=== PATIENT | male | born 1980 | race Two or more races ===

== ENCOUNTER 2020-04-19 11:50 | Emergency (ER) | payer MEDICAID ==
[~2020-04-19] VITALS: Ht 167.6 cm; Wt 65.8 kg
[2020-04-19 12:13] VITALS: BP 158/98
[2020-04-19] MEDS ORDERED: FLUORESCEIN SOD 1 MG TEST STRIP OP ONE (12:30)
[2020-04-19] MEDS ORDERED: TETRACAINE HCL 0.5% OPTH(EYE) SOLN 4ML LEFTEYE ONE (12:30)
== END 2020-04-19 12:45 | disposition home or self-care (01) ==
LOC: ER 11:50
DX: S05.02XA Injury of conjunctiva and corneal abrasion without foreign body, left eye, initial encounter (principal); H11.32 Conjunctival hemorrhage, left eye; F17.210 Nicotine dependence, cigarettes, uncomplicated; Z59.0 Homelessness; X58.XXXA Exposure to other specified factors, initial encounter; Y93.89 Activity, other specified; Y92.89 Other specified places as the place of occurrence of the external cause; Y99.8 Other external cause status

== ENCOUNTER 2021-08-31 00:57 | Emergency (ER) | payer MEDICAID ==
[~2021-08-31] VITALS: Ht 167.6 cm; Wt 70.3 kg
[2021-08-31 01:00] VITALS: BP 135/97
== END 2021-08-31 04:36 | disposition left against medical advice (07) ==
LOC: ER 00:58
DX: R07.81 Pleurodynia (principal); Z53.21 Procedure and treatment not carried out due to patient leaving prior to being seen by health care provider; Y09 Assault by unspecified means; Y93.89 Activity, other specified; Y92.89 Other specified places as the place of occurrence of the external cause; Y99.8 Other external cause status
CPT/HCPCS: 71101

== ENCOUNTER 2021-11-15 21:49 | Emergency (ER) | payer MEDICAID ==
[~2021-11-15] VITALS: Ht 170.2 cm; Wt 68.0 kg
[2021-11-15 22:10] VITALS: BP 159/102
[2021-11-15 23:38] LABS: Basophils # (auto) 0 10 ^3/uL (0-0.2); Basophils % (auto) 0.2 % (0.0-2.0); Eosinophils # (auto) 0.1 10 ^3/uL (0-0.8); Eosinophils % (auto) 0.7 % (0.0-7.0); Hematocrit 45.2 % (41.0-53.0); Hemoglobin 15.5 g/dL (13.5-17.5); Lymphocytes # (auto) 1.1 10 ^3/uL (0.4-5.4); Lymphocytes % (auto) 10.5 % (10.0-50.0); Mean Corpuscular Hemoglobin 29.5 pg (28.0-32.0); Mean Corpuscular Hgb Conc. 34.2 g/dL (32.0-36.0); Mean Corpuscular Volume 86.3 fL (80.0-100.0); Monocytes # (auto) 0.6 10 ^3/uL (0-1.3); Monocytes % (auto) 5.3 % (0.0-12.0); Neutrophils # (auto) 8.7 10 ^3/uL (1.6-8.6); Neutrophils % (auto) 83.3 % (37.0-80.0); Red Blood Cells 5.24 10^6/uL (4.5-5.90); Red Cell Distribution Width 14.1 % (11.8-14.3); White Blood Cell 10.5 10^3/uL (4.4-10.8)
[2021-11-15 23:59] LABS: Albumin 3.4 g/dL (3.4-5.0); Calcium 9.3 mg/dL (8.5-10.1); Potassium 3.7 mmol/L (3.5-5.1)
[2021-11-16 00:01] LABS: BUN/Creatinine Ratio 25.7
[2021-11-16 00:09] LABS: Bilirubin, Total 1.1 mg/dL (0.2-1.0); Total Protein 7.2 g/dL (6.4-8.2)
== END 2021-11-16 04:50 | disposition left against medical advice (07) ==
LOC: ER 21:49
DX: R10.9 Unspecified abdominal pain (principal); R11.2 Nausea with vomiting, unspecified; Z53.21 Procedure and treatment not carried out due to patient leaving prior to being seen by health care provider
CPT/HCPCS: 36415; 80053; 83690; 83735; 85025

== ENCOUNTER 2023-10-10 04:30 | Emergency (ER) | payer MEDICAID ==
[~2023-10-10] VITALS: Ht 172.7 cm; Wt 90.0 kg
[2023-10-10] MEDS ORDERED: HYDROcodone-ACET 5/325MG TAB PO ONE (07:00)
[2023-10-10 07:26] VITALS: BP 178/98; PULSE 86; RESP 16; TEMP 98.7; O2SAT 100
[2023-10-10] MEDS ORDERED: IBUP-1456 PO (07:26)
[2023-10-10] MEDS ORDERED: KETOROLAC TROMETH 60MG/2ML VIAL IM ONE (07:30)
== END 2023-10-10 07:44 | disposition home or self-care (01) ==
LOC: EDUNIT# 04:30 → ER 04:30 → EDBD 04:30 → ER 07:43
DX: S83.92XA Sprain of unspecified site of left knee, initial encounter (principal); F17.210 Nicotine dependence, cigarettes, uncomplicated; Z79.1 Long term (current) use of non-steroidal anti-inflammatories (NSAID); V49.9XXA Car occupant (driver) (passenger) injured in unspecified traffic accident, initial encounter; Y93.89 Activity, other specified; Y92.89 Other specified places as the place of occurrence of the external cause; Y99.8 Other external cause status
CPT/HCPCS: 73700; 96372; 99285; J1885

== ENCOUNTER 2024-01-23 02:02 | Emergency (ER) | payer MEDICAID ==
[~2024-01-23 02:02] MED LIST: IBUP-1456 PO
== END 2024-01-23 02:46 | disposition left against medical advice (07) ==
LOC: ER 02:02
DX: F11.23 Opioid dependence with withdrawal (principal); Z53.21 Procedure and treatment not carried out due to patient leaving prior to being seen by health care provider